=== PATIENT | male | born 1960 | race Caucasian/White ===

== ENCOUNTER 2022-10-30 10:55 | Outpatient (CLI) | payer BC ==
[2022-10-30] MEDS ORDERED: Iopamidol-370 76% 500 ML 1 ML ONE (13:26)
== END 2022-10-30 10:56 | disposition home or self-care (01) ==
LOC: BICCT 10:55
PROVIDERS: ATTEND Nurse Practitioner Family
DX: I77.89 Other specified disorders of arteries and arterioles (principal); I71.20 Thoracic aortic aneurysm, without rupture, unspecified; K76.89 Other specified diseases of liver; K76.9 Liver disease, unspecified
CPT/HCPCS: 71275; 82565; Q9967

== ENCOUNTER 2023-06-04 07:19 | Outpatient (CLI) | payer BC ==
[2023-06-04] MEDS ORDERED: Iopamidol 370 76% 100 ML VIAL ONE (10:26)
== END 2023-06-04 07:20 | disposition home or self-care (01) ==
LOC: BICCT 07:19
PROVIDERS: ATTEND Internal Medicine Cardiovascular Disease
DX: I77.89 Other specified disorders of arteries and arterioles (principal)
CPT/HCPCS: 71275; 82565; Q9967